=== PATIENT | female | born 1975 | race African-American/Black ===

== ENCOUNTER 2016-12-31 20:39 | Inpatient (IN) ==
[2016-12-31] MEDS ORDERED: ONDANSETRON 4 MG/2 ML VIAL IV STA (21:13)
[2016-12-31] MEDS ORDERED: FUROSEMIDE 100 MG/10 ML VIAL IV STA (21:13)
[2016-12-31] MEDS ORDERED: MORPHINE 2 MG/1 ML SYRINGE IV STA (21:13)
[2016-12-31] MEDS ORDERED: cefTRIAXone 1,000 MG in SODIUM CHLORIDE 0.9% 100 ML IV STA (21:13)
--- NOTE | 2016-12-31 21:16 | XRay Report ---
Portable chest Indication: Shortness of breath, chest pain Comparison: Not available Findings: Cardiomediastinal contours are normal. Lungs are clear bilaterally. No acute osseous abnormalities. Visualized upper abdomen demonstrates no acute pathology. Impression: No acute cardiopulmonary findings PROCEDURE INTERPRETED AT [facility] DEPARTMENT OF RADIOLOGY Final Report Signed by: Matt Henriquez MD
[2016-12-31] MEDS ORDERED: ALBUTEROL 2.5 MG/3 ML NEB RESP TX SCH (21:30)
[2016-12-31 21:43] LABS: Basophils # 0.1 10*3/uL (0.0-0.2); Basophils % 0.6 % (0.0-0.8); Eosinophils # 0.5 10*3/uL (0.0-0.87); Eosinophils % 6.6 % (0.00-10.9); Hemoglobin 13.4 GM/DL (12.0-16.0); Immature Granulocytes % 0.1 %; Immature Granulocytes Absolute 0.01 #; Lymphocytes # 3.8 10*3/uL (1.4-4.0); Lymphocytes % 49.6 % (21.3-54.2); Mean Corpuscular HGB Conc 34.4 GM/DL (32-36); Mean Corpuscular Hemoglobin 31 PG (27-34); Mean Corpuscular Volume 91.1 FL (87-102); Mean Platelet Volume 10.4 FL (9.6-12.0); Monocytes # 0.4 10*3/uL (0.11-0.8); Monocytes % 5.3 % (1.7-12.7); Neutrophils # 2.9 10*3/uL (1.4-7.4); Neutrophils % 37.8 % (38.7-73.9); Platelet Count 241 T/CUMM (130-400); Red Blood Count 4.28 MC/CUMM (3.8-5.5); White Blood Count 7.7 T/CUMM (4-12)
[2016-12-31] MEDS ORDERED: cefTRIAXone 1,000 MG VIAL ONE (21:48)
[2016-12-31] MEDS ORDERED: SODIUM CHLORIDE 0.9% 100 ML IV ONE (21:48)
--- NOTE | 2016-12-31 21:53 | Emergency Department Note ---
Clementina Dewitt Rolonda, am scribing for, and in the presence of, El Rodriguez MD 21:24. Jennifer Dewitt Charles R, MD, personally performed the services described in this documentation, ascribed by Eddie Mcrae in my presence, and it is both accurate and complete . Arrival - Arrival Chief Complaint: Shortness of Breath Stated Complaint: SHORTNESS OF BREATH CHEST PAINS ED Nursing Triage Note: C/O Shortness of breath. Onset 2 days ago. pt reports that she has been in a car with people that have been smoking and she has COPD. FSG 118 at time of triage. EKG obtained at time of triage. Mode of Arrival: Ambulatory Limitations: No Limitations Source: Patient, Old Records Reviewed, RN Notes Reviewed Time Seen by Provider: 12/31/16 21:08 - History of Present Illness HPI Narrative: Pt is a 41 y/o female who presents to the ED with c/o SOB with an onset of x2 days. Pt has a PMHx of HTN, DM, and COPD. She states that she smokes 2-3 cigarettes per day. She states that she has been struggling for air and it feels as if she is going to pass out every time she stands up. Pt confirms that she is "very tired". No other complaint/pain in ED. Onset (ago): day(s) Consistency: constant Severity: moderate, severe Severity scale (1-10): 6 Date of Last Menstrual Period: Partial hysterectomy Allergies/Adverse Reactions: Allergies Allergy/AdvReac Type Severity Reaction Status Date / Time ketorolac [From Toradol] Allergy Intermediate RASH Verified 12/31/16 20:47 metoclopramide [From Reglan] Allergy Intermediate RASH Verified 12/31/16 20:47 milk Allergy Intermediate RASH Verified 12/31/16 20:47 ondansetron Allergy Intermediate ANAPHYLAXIS Verified 12/31/16 22:20 [From Zofran (as hydrochloride)] Shellfish Allergy Intermediate RASH Verified 12/31/16 20:47 Sulfa (Sulfonamide Allergy Intermediate RASH Verified 12/31/16 20:47 Antibiotics) Home Medications: Home Medications Medication Instructions Recorded Confirmed Type Unable To Obtain [Unable to Obtain] 12/31/16 12/31/16 History Review of System - Review of System 12 point system: reviewed and no additional remarkable complaints except as stated - Review of System Constitutional: Absent: chills, fever Eyes: Absent: discharge Head/Ears/Nose/Throat: Absent: earache Respiratory: Present: respiratory distress (SOB). Absent: cough Cardiovascular: Absent: chest pain Gastrointestinal: Absent: nausea Genitourinary female: Absent: dysuria Musculoskeletal: Absent: arm pain Skin: Absent: rash Neurological: Absent: headache Psychiatric: Absent: anxiety Endocrine: Absent: cold intolerance Hematological/Lymphatic: Absent: easy bleeding Allergic/Immunologic: Absent: facial swelling Medical,Surgical,& Family Hx - Medical History Cardio: History of: Hypertension Endocrine: History of: Diabetes Mellitus (NIDDM) Respiratory: History of: COPD - Social History Smoking Status: Unknown if ever smoked Frequency of Alcohol Use: None Type of Drug Use: None Exam Vital Signs: Vital Signs Temperature 98.5 F 12/31/16 20:53 Pulse Rate 85 12/31/16 20:53 Respiratory Rate 22 12/31/16 20:53 Blood Pressure 98/58 12/31/16 20:53 O2 Sat by Pulse Oximetry 98 12/31/16 20:53 - General General appearance: alert, in no apparent distress - Head Head exam: Present: atraumatic, normocephalic - Eye Eye exam: Present: PERRL, EOMI - ENT ENT exam: Present: mucous membranes moist. Absent: mucous membranes dry - Neck Neck exam: Present: full ROM. Absent: tenderness - Chest Chest inspection: Present: symmetric chest wall rise. Absent: tenderness - Respiratory Respiratory exam: Present: rales (at base), respiratory distress (moderate), wheezes (audible), other (breathing heavy). Absent: normal lung sounds bilaterally (diminished breath sounds) - Cardiovascular Cardiovascular exam: Present: regular rate, normal rhythm, normal heart sounds. Absent: bradycardia - Abdominal Exam Abdominal exam: Present: soft, normal bowel sounds. Absent: tenderness - Extremities Exam Extremities exam: Present: full ROM, pedal edema (+1). Absent: tenderness - Back Exam Back exam: Present: full ROM. Absent: tenderness - Neurological Exam Neurological exam: Present: alert, oriented X3, CN II-XII intact - Psychiatric Psychiatric exam: Present: normal affect, normal mood - Skin Skin exam: Present: warm, dry, intact, normal color. Absent: rash Course Course Narrative: A left EJ was placed 20-gauge successfully first attempt - Consultations Consultation #1: Hospitalist will admit patient Time: 22:18 Results - Labs CBC & BMP: 12/31/16 21:30 12/31/16 21:30 Lab Results: I have reviewed the patients labs Labs: Laboratory Tests 12/31/16 21:30 WBC 7.7 RBC 4.28 Hgb 13.4 Hct 39.0 Neut % (Auto) 37.8 L Laboratory Tests 12/31/16 12/31/16 21:30 21:30 INR 1.0 PT Patient/Control Mix 10.2 D-Dimer, Quantitative <= 0.5 Sodium 142 Potassium 3.4 L Chloride 107 Carbon Dioxide 32 BUN 18 GFR Calculation 174 BUN/Creatinine Ratio 25.00 H Glucose 102 AST 20 Total Creatine Kinase 198 H CK-MB (CK-2) 5.4 H CK and CKMB Interp 2.7 Albumin 3.3 L Globulin 3.7 H Albumin/Globulin Ratio 0.8 L Laboratory Tests 12/31/16 21:30 B-Natriuretic Peptide 11 - Diagnostic Findings Procedure: Chest x-ray: report reviewed by me (No acute cardiopulmonary findings.) Critical Care Time Critical Care Time: Yes Total Critical Care Time: 60 Disposition Clinical Impression: Acute exacerbation of chronic obstructive airways disease, Hypotension Case discussed with: patient Disposition: Still a Patient Condition: Guarded Time of Disposition: 22:19
[2016-12-31] MEDS ORDERED: ONDANSETRON 4 MG/2 ML VIAL ONE (21:54)
[2016-12-31] MEDS ORDERED: FUROSEMIDE 20 MG/2 ML VIAL ONE (21:54)
[2016-12-31] MEDS ORDERED: methylPREDNISolone SOD SUC 125 MG/2 ML VIAL ONE (21:55)
[2016-12-31 21:56] LABS: PT Patient Result 10.2 SECS
[2016-12-31] MEDS: methylPREDNISolone SOD SUC 125 MG/2 ML VIAL IV STA ×2 (21:58→21:59)
[2016-12-31 22:07] LABS: Alanine Aminotransferase 24 U/L (13-56); Albumin 3.3 G/DL (3.4-5.0); Alkaline Phosphatase 103 U/L (45-117); Aspartate Amino Transferase 20 U/L (0-37); Bilirubin,Total < 0.39 MG/DL (0.2-1.0); Calcium 8.9 MG/DL (8.5-10.1); Magnesium 2.2 MG/DL (1.8-2.4); Troponin I Only < 0.015 NG/ML (0.00-0.045)
[2016-12-31 22:08] LABS: Blood Urea Nitrogen 18 MG/DL (7-18); CKMB % 2.7 %; Glucose 102 MG/DL (74-106); Osmolality,Calculated 284.1 MOS/KG (273-304); Potassium 3.4 MMOL/L (3.5-5.1); Sodium 142 MMOL/L (136-145); Troponin I Only < 0.015 NG/ML (0.00-0.045)
[2016-12-31 23:16] LABS: Apearance,Urine Slightly Hazy (Clear); Bilirubin,Urine Negative (Negative); Blood, Urine Negative (Negative); Glucose,Urine (UA) Negative (Negative); Ketones,Urine Negative (Negative); Mucus,Urine Occasional /LPF (Occasional); Nitrite,Urine Negative (Negative); Protein,Urine Negative; RBC,Urine 3 /HPF (0-4); Squamous Epithelial Cell,Urine Occasional /HPF (0-10); Urine Color Yellow (Yellow); Urine Specific Gravity 1.012 (1.001-1.035); Urine Urobilinogen < 2.0 EU/DL (0.2-1.0); WBC,Urine 4 /HPF (0-6)
[2016-12-31] MEDS ORDERED: ACETAMINOPHEN 325 MG TABLET PO PRN (23:19)
[2016-12-31] MEDS ORDERED: PROMETHAZINE 25 MG/1 ML VIAL IM PRN (23:19)
[2016-12-31] MEDS ORDERED: DEXTROSE 50% 25 GM/50 ML VIAL IV PRN (23:19)
[2016-12-31] MEDS ORDERED: GLUCAGON 1 MG VIAL IM PRN (23:19)
[2016-12-31] MEDS ORDERED: NICOTINE 21 MG/24 HR PATCH TRANSDERM PRN (23:19)
[2016-12-31] MEDS ORDERED: ALBUTEROL 2.5 MG/3 ML NEB RESP TX PRN (23:19)
[2016-12-31 23:22] LABS: Barbiturates Screen,Urine Negative (Negative); Benzodiazepines Screen,Urine Negative (Negative); Cannabinoid Screen,Urine Positive (Negative); Opiate Screen,Urine Positive (Negative); Phencyclidine Screen,Urine Negative (Negative)
[2016-12-31 23:44] LABS: Band Neutrophils 2 % (0-10); Eosinophils 5 % (0-10); Lymphocytes 46 % (20-55); Platelet Estimate Normal; Segmented Neutrophils 45 % (50-85); Total Cells Counted 100
--- NOTE | 2017-01-01 | Hospitalist History & Physical ---
Assessment and Plan - Time spent with patient Time spent with patient: Greater than 30 minutes (1) Acute exacerbation of chronic obstructive airways disease Status: Acute Assessment and plan: Admit to hospitalist services. Monitored Bed. Continuous albuterol neb x 1 hours given in ED. Continue respiratory treatments with Albuterol Nebs Q20 minutes PRN and DuoNebs Q4 hours. Solumedrol 125 mg IV given in ED. Continue with Solumedorl 40 mg IV Q6 hours. Rocephin 1000 mg IV given in ED; Continue with Rocephin 1000 mg IV Q 24 hours. O2 per unit protocol ABGs pending; follow. Obtain sputum cultures; follow. CBC, BMP, A1c, in a.m. Current Visit: Yes (2) Hypokalemia Status: Acute Assessment and plan: Potassium 10 meq PO x 1 dose. Recheck BMP in a.m. Current Visit: Yes (3) Diabetes Status: Acute Assessment and plan: No home medications listed in computer yet; Continue when available. ADA diet. Accuchecks and SSI ACHS. Current Visit: Yes (4) Hypertension Status: Acute Assessment and plan: No home medications listed in computer yet; Continue when updated. Monitor. Current Visit: Yes (5) Tobacco dependence Status: Acute Assessment and plan: Nicotine patch Q24 hours. Current Visit: Yes (6) DVT prophylaxis Status: Acute Assessment and plan: Lovenox 40 mg SQ daily. Current Visit: Yes History of Present Illness Chief complaint: SOB History of present illness: Ms. Mckay is a 41 year old female with a past medical history of COPD, CHF, HTN, asthma, and DM who presented to the ED today with complaints of severe shortness of breath. Symptoms reportedly started a few days ago but got significantly worse today. She has had a some nausea, vomiting, and a cough but it has been non-productive. She denies fever and chills. In the ED, her initial vital signs were temp 98.5, HR 87, RR 22, BP 138/88 and O2 sat of 97% on room air. Labs were unremarkable. ABG still pending at this time. CXR without acute cardiopulmonary findings. Currently, she is lying in bed, able to speak only a few words at a time. She denies further complaints. Hospitalist services were consulted, and the patient will be admitted for further evaluation and treatment. Home medications not available for review and reconciliation at this time. This patient is a full code. Home Medications Medication Instructions Recorded Confirmed Type Unable To Obtain [Unable to Obtain] 12/31/16 12/31/16 History Allergies Allergy/AdvReac Type Severity Reaction Status Date / Time ketorolac [From Toradol] Allergy Intermediate RASH Verified 12/31/16 20:47 metoclopramide [From Reglan] Allergy Intermediate RASH Verified 12/31/16 20:47 milk Allergy Intermediate RASH Verified 12/31/16 20:47 ondansetron Allergy Intermediate ANAPHYLAXIS Verified 12/31/16 22:20 [From Zofran (as hydrochloride)] Shellfish Allergy Intermediate RASH Verified 12/31/16 20:47 Sulfa (Sulfonamide Allergy Intermediate RASH Verified 12/31/16 20:47 Antibiotics) Medical,Surgical,& Family Hx - Medical History Cardio: History of: CHF, Hypertension Endocrine: History of: Diabetes Mellitus (NIDDM) Respiratory: History of: Asthma, Bronchitis, COPD - Surgical History Abdominal Surgeries: Surgical HX of: Cholecystectomy Reproductive Surgeries: Surgical HX of;: Section, Dilation and Curettage, Genitourinary Surgery (bladder ), Gynecologic Surgery (ablation ), Hysterectomy Orthopedic Surgeries: Surgical HX of;: Orthopedic Surgery (right knee) - Family History Family History: Reports;: Family Diabetes, Family Heart Disease, Family Hypertension - Social History Smoking Status: Current every day smoker Have you smoked in the last 12 months: Yes Time spent discussing smoking cessation with patient: 3 to 10 minutes ( Discussed smoking cessation with the patient for 3 minutes.) Frequency of Alcohol Use: None Type of Drug Use: None Marital Status: Single Lives With:: Alone Functional capacity: independent ambulation 12 point system: reviewed and no additional remarkable complaints except as stated - Constitutional Constitutional: Absent: chills, fever(s), malaise, weakness - EENT Eyes: Absent: blurry vision, diplopia, loss of vision Ears: Absent: decreased hearing, ear discharge, ear pain Nose, mouth and throat: Absent: headache(s), nasal congestion, sore throat - Cardiovascular Cardiovascular: Present: dyspnea. Absent: chest pain at rest, chest pain with activity, diaphoresis, edema, lightheadedness, orthopnea, palpitations - Respiratory Respiratory: Present: cough, dyspnea, wheezing - Gastrointestinal Gastrointestinal: Present: nausea, vomiting. Absent: abdominal pain, constipation, diarrhea - Genitourinary Genitourinary: Absent: dysuria, flank pain, urinary frequency - Musculoskeletal Musculoskeletal: Absent: arthralgias, back pain, joint swelling, muscle weakness , myalgias - Neurological Neurological: Absent: confusion, disequilibrium, numbness, paresthesias, syncope - Psychiatric Psychiatric: Absent: anxiety, depression - Endocrine Endocrine: Absent: cold intolerance, polydipsia, polyphagia, polyuria - Hematologic/Lymphatic Hematologic/Lymphatic: Absent: easy bleeding, easy bruising Exam - Constitutional Vitals: Period Temp Pulse Resp BP Sys/Mcgill Pulse Ox Last 24 Hr 98.5 F-98.5 F 85-87 22-22 98-138/58-88 97-98 Exam: Constitutional System: Afebrile. Awake, alert and oriented x 3. Moderate distress. No tremulousness. Head: Normocephalic, atraumatic. Ears, Nose and Throat System: No pain or tenderness. No epistaxis or discharge Eyes System: Pupils equal, round, and reactive. Extraocular muscles intact. Neck: Supple, without adenopathy, No jugular venous distention. No thyromegaly, neck mass, or prior surgery apparent. Respiratory System: Rhonchi and wheezing noted throughout. No accessory muscle use noted. Able to speak a few words at a time. Cardiovascular System: Heart with regular rate and rhythm. No murmur. GI System: Abdomen soft, nontender. Normo active bowel sounds present. Musculoskeletal System: Limbs with no pedal edema. Full distal pulses. Normal capillary refill. Neurological System: No discernable sensory deficit. No aphasia Psychiatric System: Conversation is rational Results - Labs CBC & BMP: 12/31/16 21:30 12/31/16 21:30 Lab Results: I have reviewed the past 24 hour labs Labs: WBC 7.7 RBC 4.28 Hgb 13.4 HCT 39.0 MCV 91.1 Platelet 241 INR 1.0 PT 10.2 D-dimer less than or equal to 0.5 Sodium 142 potassium 3.4 chloride 107 BUN 18 Creatinine 0.7 Glucose 102 Lactic acid 1.3 Calcium 8.9 Magnesium 2.2 Total bilirubin less than 0.39 AST 20 ALT 24 Alkaline phosphatase 103 Total CK 198 CK-MB 5.4 Troponin less than 0.015 BNP 11 Albumin 3.3 Urinalysis negative. Urine Opiate positive Urine amphetamine/methamphetamine positive Urine cannabinoids positive - Diagnostic Findings Procedure: Chest x-ray: report reviewed by me
[2017-01-01] MEDS ORDERED: ALBUTEROL/IPRATROPIUM 3 ML NEB RESP TX SCH (01:00)
[2017-01-01] MEDS ORDERED: POTASSIUM CHLORIDE 10 MEQ TABLET PO ONE (02:00)
[2017-01-01] MEDS: methylPREDNISolone SOD SUC 40 MG/1 ML VIAL IV SCH ×4 (04:20→20:17)
[2017-01-01] MEDS: ALBUTEROL/IPRATROPIUM 3 ML NEB RESP TX SCH ×5 (04:31→19:17)
[2017-01-01] MEDS: INSULIN LISPRO 100 UNIT/ML SUBCUT SCH ×4 (08:19→20:19)
[2017-01-01] MEDS: ENOXAPARIN 40 MG/0.4 ML SYRINGE SUBCUT SCH (09:21)
[2017-01-01] MEDS: PANTOPRAZOLE 40 MG TABLET PO SCH (09:21)
[2017-01-01 09:35] LABS: Basophils % 0.6 % (0.0-0.8); Eosinophils # 0.3 10*3/uL (0.0-0.87); Eosinophils % 3.9 % (0.00-10.9); Hematocrit 39.4 VOL% (35.7-47.0); Hemoglobin 13.5 GM/DL (12.0-16.0); Immature Granulocytes % 0.3 %; Immature Granulocytes Absolute 0.02 #; Lymphocytes # 2.3 10*3/uL (1.4-4.0); Lymphocytes % 35.6 % (21.3-54.2); Mean Corpuscular HGB Conc 34.3 GM/DL (32-36); Mean Corpuscular Hemoglobin 31 PG (27-34); Mean Corpuscular Volume 90.8 FL (87-102); Mean Platelet Volume 10.7 FL (9.6-12.0); Monocytes # 0.5 10*3/uL (0.11-0.8); Monocytes % 7.4 % (1.7-12.7); Neutrophils # 3.4 10*3/uL (1.4-7.4); Neutrophils % 52.2 % (38.7-73.9); Platelet Count 224 T/CUMM (130-400); Red Blood Count 4.34 MC/CUMM (3.8-5.5); Red Cell Distribution Width 13.2 % (9.3-17.3); White Blood Count 6.5 T/CUMM (4-12)
[2017-01-01 10:12] LABS: Calcium 8.7 MG/DL (8.5-10.1); Potassium 3.8 MMOL/L (3.5-5.1)
[2017-01-01] MEDS: MORPHINE 2 MG/1 ML SYRINGE IV PRN ×3 (12:09→20:17)
[2017-01-02] MEDS: MORPHINE 2 MG/1 ML SYRINGE IV PRN ×4 (00:20→15:43)
[2017-01-02] MEDS: ALBUTEROL/IPRATROPIUM 3 ML NEB RESP TX SCH ×6 (00:35→20:27)
[2017-01-02] MEDS: methylPREDNISolone SOD SUC 40 MG/1 ML VIAL IV SCH ×3 (03:23→15:43)
[2017-01-02] MEDS ORDERED: FUROSEMIDE 80 MG TABLET PO PRN (04:23)
[2017-01-02] MEDS ORDERED: traMADol 50 MG TABLET PO SCH (09:00)
[2017-01-02] MEDS ORDERED: LISINOPRIL/HCTZ 20-12.5 MG TABLET PO SCH (09:00)
[2017-01-02] MEDS ORDERED: PREGABALIN 100 MG CAPSULE PO SCH (09:00)
[2017-01-02] MEDS: LORazepam 1 MG TABLET PO SCH ×2 (09:14→15:43)
[2017-01-02] MEDS: ENOXAPARIN 40 MG/0.4 ML SYRINGE SUBCUT SCH (09:14)
[2017-01-02] MEDS: PANTOPRAZOLE 40 MG TABLET PO SCH (09:14)
[2017-01-02] MEDS: CYCLOBENZAPRINE 10 MG TABLET PO SCH ×2 (09:15→15:43)
--- NOTE | 2017-01-02 09:19 | Hospitalist Progress Note ---
Assessment and Plan (1) Acute exacerbation of chronic obstructive airways disease Status: Acute Assessment and plan: Continue with IV antibiotics,steroids and nebs treatment. Follow sputum cultures Current Visit: Yes (2) Hypokalemia Status: Acute Assessment and plan: repleted Current Visit: Yes (3) Diabetes Status: Acute Assessment and plan: [id number] Continue with current regime Current Visit: Yes (4) Hypertension Status: Acute Assessment and plan: Resume home meds Current Visit: Yes (5) Tobacco dependence Status: Acute Assessment and plan: She has been counseled to quit, continue with Nicotine patch Current Visit: Yes (6) Obesity Status: Acute Current Visit: Yes (7) Morbid obesity with BMI of 45.0-49.9, adult Status: Acute Assessment and plan: will check TSH, Lipids and get a dietitian consult Current Visit: Yes Hospitalist: Subjective Interval history: Progress Note 01/01/2017 Patient complained about pain and was still wheezing. Exam - Constitutional Vitals: Period Temp Pulse Resp BP Sys/Mcgill Pulse Ox Last 24 Hr 96.7 F-98.2 F 62-91 16-22 140-181/76-108 94-99 General appearance: mild distress, morbidly obese - Head Head exam: Present: normal inspection - Respiratory Respiratory exam: Present: wheezes - Cardiovascular Cardiovascular exam: Present: regular rate and rhythm - GI/Abdominal GI/Abdominal exam: Present: normal bowel sounds - Extremities Exam Extremities exam: Present: normal inspection - Neurological Exam Neurological exam: Present: alert, oriented X3 Results - Labs CBC & BMP: 01/01/17 09:15 01/01/17 09:15 Lab Results: I have reviewed the past 24 hour labs Specialty Discharge - Follow Up or Referrals
--- NOTE | 2017-01-02 09:29 | Hospitalist Progress Note ---
Assessment and Plan (1) Acute exacerbation of chronic obstructive airways disease Status: Acute Assessment and plan: Continue with IV antibiotics,steroids and nebs treatment. Follow sputum cultures Will also get BC Current Visit: Yes (2) Hypokalemia Status: Acute Assessment and plan: repleted Current Visit: Yes (3) Diabetes Status: Acute Assessment and plan: [id number] Continue with current regime Current Visit: Yes (4) Hypertension Status: Acute Assessment and plan: continue to monitor and will adjust meds accordingly. Current Visit: Yes (5) Tobacco dependence Status: Acute Assessment and plan: She has been counseled to quit, continue with Nicotine patch Current Visit: Yes (6) Obesity Status: Acute Current Visit: Yes (7) Morbid obesity with BMI of 45.0-49.9, adult Status: Acute Assessment and plan: will check TSH, Lipids and get a dietitian consult Current Visit: Yes Hospitalist: Subjective Interval history: Patient seen this am. She is still complaining of chest pain, back pain and hurting all over. She states she had a terrible night due to pain. Exam - Constitutional Vitals: Period Temp Pulse Resp BP Sys/Mcgill Pulse Ox Last 24 Hr 96.7 F-98.2 F 62-91 16-22 140-181/76-108 94-99 General appearance: no acute distress, morbidly obese - Head Head exam: Present: normal inspection - Respiratory Respiratory exam: Present: wheezes - Cardiovascular Cardiovascular exam: Present: regular rate and rhythm - GI/Abdominal GI/Abdominal exam: Present: normal bowel sounds - Extremities Exam Extremities exam: Present: normal inspection - Neurological Exam Neurological exam: Present: alert, oriented X3 Results - Labs CBC & BMP: 01/01/17 09:15 01/01/17 09:15 Lab Results: I have reviewed the past 24 hour labs Specialty Discharge - Follow Up or Referrals
[2017-01-02] MEDS: INSULIN LISPRO 100 UNIT/ML SUBCUT SCH ×4 (09:51→15:56)
[2017-01-02 11:02] LABS: Free T4 (Free Thyroxine) 0.86 NG/DL (0.76-1.46); Risk Ratio 2.93; Thyroid Stimulating Hormone 0.244 uIU/ml (0.358-3.74)
[2017-01-02 15:57] VITALS: BP 142/107
[2017-01-03] MEDS: ALBUTEROL/IPRATROPIUM 3 ML NEB RESP TX SCH ×2 (00:23→01:02)
--- NOTE | 2017-01-03 11:16 | Discharge Summary ---
Hospital Course - Hospital Course Hospital Course: Ms. Mckay is a 41 year old female with a past medical history of COPD, CHF, HTN, asthma, and DM who presented to the ED today with complaints of severe shortness of breath. Upon arrival, CXR showed no acute changes, she was wheezing and was admitted for acute copd exacerbation. She was started on nebs treatments, IV steroid, antibiotics. Her potassium was replaced. She was also counseled to quit smoking and was placed on Nicotine patch. Blood cultures showed no grwoth so far. D-dimer and troponin were unremarkable. Her TSH was low at 0.22 with a normal free t4-0.86. Her blood pressure medications were being adjusted to control the bp. Last night patient decided to leave AMA. - Time spent with patient Time with patient DS: Less than 30 minutes Diagnosis - Discharge Diagnosis (1) Acute exacerbation of chronic obstructive airways disease Status: Acute (2) Hypokalemia Status: Acute (3) Diabetes Status: Acute (4) Hypertension Status: Acute (5) Tobacco dependence Status: Acute (6) Obesity Status: Acute (7) Morbid obesity with BMI of 45.0-49.9, adult Status: Acute Specialty Discharge - Follow Up or Referrals Discharge Plan - Discharge Data Disposition: Left Against Medical Advice - Discharge Medications No Action Promethazine Tab [Phenergan Tab] 25 mg PO TID LORazepam [Lorazepam] 2 mg PO TID Furosemide 80 mg PO BID PRN PRN Reason: Edema Pregabalin [Lyrica] 300 mg PO BID Hydrocodone/Acetaminophen [Hydrocodon-Acetaminophn 10-325] 1 tablet PO BID PRN PRN Reason: Pain Tramadol HCl [Tramadol Tab] 50 mg PO BID cloNIDine HCl [Clonidine HCl] 0.2 mg PO BID Lisinopril/Hydrochlorothiazide [Lisinopril-Hctz 20-12.5 mg Tab] 1 tablet PO DAILY Cyclobenzaprine [Flexeril] 10 mg PO TID - Follow Up or Referral - Forms/Instructions Instructions: Chronic Obstructive Pulmonary Disease (GEN), Cigarette Smoking and Your Health, Extractor Tender Raw Stock (GEN), How to Stop Smoking, Extractor Tender Raw Stock ( GEN), COPD Exacerbation, Extractor Tender Raw Stock (GEN) Exam - Constitutional Vitals: Period Temp Pulse Resp BP Sys/Mcgill Pulse Ox Last 24 Hr 96.8 F-98.2 F 70-112 20-20 142-143/83-107 91-100 Discharge Results Procedures and tests throughout hospitalization: Pending Orders 01/02/17 10:29 Blood Culture Routine Labs on day of discharge: Labs from last 24 hours 01/02/17 01/02/17 01/02/17 18:27 15:18 12:17 POC Glucose 194 H 251 H 173 H Preliminary micro results at discharge 01/02/17 10:29 Blood Culture - Preliminary Blood No growth at 1 day 01/02/17 10:29 Blood Culture - Preliminary Blood No growth at 1 day DS: Provider Date of admission: 12/31/16 23:13 Primary care physician: . No PCP Attending physician on admission: Mary Jo Saleh MD Consults: 01/02/17 09:30 Consult to Dietitian [CONS] Routine Reason for Dietitian: Dietary Consult Discharging clinician: Mary Jo Saleh MD
--- NOTE | 2017-01-04 21:04 | DUMMY REPORT TO COMPLETE ORDER ---
See report scanned to EMR
== END 2017-01-02 19:17 | disposition left against medical advice (07) | DRG 191 ==
LOC: N.ED 20:39 → N.EDINP 23:13 → N.2E 01-01 01:15
PROVIDERS: ADMIT Internal Medicine; ATTEND Internal Medicine